=== PATIENT | female | born 1980 ===

== ENCOUNTER 2023-11-01 20:05 | Outpatient (REF) | payer OTHER, SELFPAY ==
[2023-11-05 09:08] LABS: Age Gdln ACOG Testing Note (.); HPV Aptima Negative (Negative); IGP, Aptima HPV, rfx 16/18,45 Note (.)
== END 2023-11-01 20:06 | disposition home or self-care (01) ==
LOC: LAB 20:05
PROVIDERS: Visit Provider Physician Assistant
DX: Z01.419 Encounter for gynecological examination (general) (routine) without abnormal findings (principal)
CPT/HCPCS: 87624; G0145